=== PATIENT | female | born 1960 | race African-American/Black ===

== ENCOUNTER 2017-07-25 06:26 | Emergency (ER) | payer SELFPAY ==
[~2017-07-25] VITALS: Ht 175.3 cm; Wt 113.0 kg
[2017-07-25] MEDS ORDERED: ONDANSETRON HCL 4MG/2ML VIAL IV STA (06:53)
[2017-07-25] MEDS ORDERED: MORPHINE SULFATE 4 MG/ML CPJ (NOT FOR IM USE) IV STA (06:53)
[2017-07-25 07:19] LABS: BASOPHILS % 0.6 % (0.0-2.0); EOSINOPHILS % 1.5 % (0.0-5.0); HEMATOCRIT. 36.2 % (36.0-48.0); HEMOGLOBIN. 12.4 g/dL (12.0-16.0); LYMPHOCYTES % 34.6 % (20.0-50.0); MEAN CORPUSCULAR HEMOGLOBIN 32.1 pg (28.0-32.0); MEAN CORPUSCULAR VOLUME 93.7 fL (81.0-99.0); MEAN PLATELET VOLUME 7.2 fl (7.4-10.4); MONOCYTES % 5.9 % (2.0-8.0); NEUTROPHILS % 57.4 % (40.0-76.0); PLATELET 240 x1000/uL (130-400); RED BLOOD CELL COUNT 3.87 mill/uL (4.2-5.4); RED CELL DISTRIBUTION WIDTH 13.1 % (11.6-14.6)
[2017-07-25 07:23] LABS: CHLORIDE 106 mEq/L (98-107)
[2017-07-25 07:33] LABS: PROTHROMBIN TIME 10.5 sec (9.4-11.6)
[2017-07-25] MEDS ORDERED: LISINOPRIL 20MG TABLET PO ONE (07:45)
[2017-07-25] MEDS ORDERED: IOHEXOL-350 100 ML BOTTLE ONE (08:33)
[2017-07-25] MEDS ORDERED: ASPIRIN 325MG TABLET PO ONE (11:15)
[2017-07-25 13:18] VITALS: BP 162/85
== END 2017-07-25 13:19 | disposition home or self-care (01) ==
LOC: ER 06:50
DX: R07.9 Chest pain, unspecified (principal); R06.02 Shortness of breath; I10 Essential (primary) hypertension; F12.10 Cannabis abuse, uncomplicated; Z98.890 Other specified postprocedural states; Z79.82 Long term (current) use of aspirin
CPT/HCPCS: 36415; 71045; 71275; 74174; 80053; 83880; 84484; 85025; 85610; 93005; 96375; 96376; 99285; J2270; J2405; Q9967; Z7610